=== PATIENT | female | born 1955 | race Caucasian/White ===

== ENCOUNTER → 2016-05-01 | Outpatient (CLI) | payer BC, OTHER ==
[~2016-05-01] MED LIST: SNG10 PO; SYNUNK; ZCRUNK
== END | disposition home or self-care (01) ==
LOC: C.RDSM 09:20
PROVIDERS: ATTEND Physical Medicine & Rehabilitation Sports Medicine
DX: M79.671 Pain in right foot (principal); M25.572 Pain in left ankle and joints of left foot